=== PATIENT | female | born 1950 | race American Indian/Alaskan Native ===

== ENCOUNTER 2018-05-13 10:40 | Outpatient (CLI) | payer MEDICARE ==
--- NOTE | 2018-05-14 08:22 | Mammography Report ---
Bilateral mammogram: No previous studies available. CAD study utilized. Findings: Predominance adipose tissue bilaterally. Cluster of calcification approximate 3:00 position right breast with an adjacent ill-defined density. Benign appearing calcification upper outer posterior left breast. Biopsy clips at posterior left breast. Normal axilla. Impression: Cluster of calcification in asymmetric density adjacent to the calcification right breast. Comparison with previous studies is recommended. If previous studies are not available spot compression and magnification and sonographic examination advice. BI-RADS CATEGORY: 0 = Needs additional imaging evaluation ACR BI-RADS MAMMOGRAPHIC CODES: 0 = Needs additional imaging evaluation; 1 = Negative; 2 = Benign; 3 = Probably benign; 4 = Suspicious; 5 = Malignant; 6 = Known biopsy-proven malignancy COMMENT: 1. Dense breast tissue, i.e., adenosis, fibrocystic changes, etc., may obscure an underlying neoplasm. 2. Approximately 10% of cancers are not detected with mammography. 3. A negative mammography report should not delay biopsy if a clinically suspicious mass is present. COMMENT: Patient follow-up letters are generated in [employer].
== END 2018-05-13 10:41 | disposition home or self-care (01) ==
LOC: MAMMO 10:40
PROVIDERS: ATTEND Internal Medicine
DX: Z12.31 Encounter for screening mammogram for malignant neoplasm of breast (principal); I11.0 Hypertensive heart disease with heart failure; I50.9 Heart failure, unspecified; I48.91 Unspecified atrial fibrillation; Z87.891 Personal history of nicotine dependence
CPT/HCPCS: 77067

== ENCOUNTER 2018-06-14 09:26 | Outpatient (CLI) | payer MEDICARE ==
--- NOTE | 2018-06-14 10:43 | Ultrasound Report ---
RIGHT DIGITAL DIAGNOSTIC MAMMOGRAM and RIGHT BREAST ULTRASOUND: 06/14/18 09:26:00 CLINICAL: Recalled to evaluate a spiculated right breast mass with calcifications. She has a history of left breast cancer status post left partial mastectomy. COMPARISON:05/13/18 screening FINDINGS: ML, CC and spot magnification LM and CC views were performed and demonstrate a spiculated mass at 1 o'clock measuring approximately 3.5 x 2.3 x 1.7 cm. Pleomorphic highly suspicious calcifications extend anteriorly from the center of the mass. No other mass or suspicious calcifications. Ultrasound of the right breast (including all four quadrants and the retroareolar area) was performed and demonstrated a solid irregular hypoechoic mass at 1 o'clock 10 cm from the nipple. It correlates with the mammographic mass and measures approximately 2.6 x 2.2 x 1.9 cm. No other mass. Ultrasound of the right axilla demonstrated a single lymph node with a fatty hilum. It measures 1.7 x 0.8 x 0.7 cm. Focal cortical thickening of the lymph node measures 4 mm. IMPRESSION: A highly suspicious 3.5 cm right breast mass at 1 o'clock 10 cm from the nipple and a suspicious right axillary lymph node. BI-RADS CATEGORY: 5 - - Highly Suggestive of Malignancy RECOMMENDATION: Ultrasound guided needle core biopsy of the right breast mass and ultrasound guided biopsy of the right axillary lymph node. I discussed the findings and the recommendation for needle core biopsy with the patient at the time of the examination. ACR BI-RADS MAMMOGRAPHIC CODES: 0 = Needs additional imaging evaluation; 1 = Negative; 2 = Benign; 3 = Probably benign; 4 = Suspicious; 5 = Malignant; 6 = Known biopsy-proven malignancy COMMENT: 1. Dense breast tissue, i.e., adenosis, fibrocystic changes, etc., may obscure an underlying neoplasm. 2. Approximately 10% of cancers are not detected with mammography. 3. A negative mammography report should not delay biopsy if a clinically suspicious mass is present. COMMENT: Patient follow-up letters are generated via our [facility] application.
== END 2018-06-14 09:27 | disposition home or self-care (01) ==
LOC: MAMMO 09:26
PROVIDERS: ATTEND Internal Medicine Hematology & Oncology
DX: C50.912 Malignant neoplasm of unspecified site of left female breast (principal); I48.91 Unspecified atrial fibrillation; I11.0 Hypertensive heart disease with heart failure; I50.9 Heart failure, unspecified; Z87.891 Personal history of nicotine dependence

== ENCOUNTER 2018-06-23 12:51 | Outpatient (CLI) | payer MEDICARE ==
--- NOTE | 2018-06-23 14:50 | Mammography Report ---
RIGHT DIGITAL DIAGNOSTIC MAMMOGRAM: 06/23/18 12:51:00 CLINICAL: For clip placement immediately status post ultrasound biopsy. COMPARISON:06/14/18 FINDINGS: A biopsy clip is now identified within the previously described spiculated upper inner mass. IMPRESSION: Concordant clip placement status post ultrasound biopsy. BI-RADS CATEGORY: 5 - - Highly Suggestive of Malignancy Pathology pending.
--- NOTE | 2018-06-23 15:22 | Ultrasound Report ---
ULTRASOUND GUIDED NEEDLE CORE BIOPSY WITH CLIP PLACEMENT RIGHT BREAST AND ULTRASOUND GUIDED NEEDLE CORE BIOPSY OF A RIGHT AXILLARY LYMPH NODE : 06/23/18 13:00:00 CLINICAL: Highly suspicious right breast mass and a suspicious right axillary lymph node. COMPARISON :04/14/18 FINDINGS: The procedure was explained to the patient and informed consent was obtained. Ultrasound demonstrated the previously described mass at 1 o'clock 10 cm from the nipple and the suspicious lymph node in the axilla. The skin was prepped with Betadine and anesthetized with 1% lidocaine. Ultrasound needle core biopsy was performed through a small dermatotomy using ultrasound guidance, 2% lidocaine with epinephrine for deep anesthesia and a 14-gauge Achieve biopsy device. 3 cores were obtained and placed in formalin. A hydro-drew clip was deployed within the mass. The skin in the axilla was prepped with Betadine and anesthetized with 1% lidocaine. Ultrasound guided needle core biopsy of the lymph node was performed through a small dermatotomy using 2% lidocaine with epinephrine for deep anesthesia and a 18-gauge Achieve biopsy device. 2 samples were obtained and placed in formalin. A clip was deployed within the lymph node. Hemostasis was obtained at both sites with minimal pressure and sterile dressings were applied. The patient tolerated the procedure well and there were no apparent complications. She was discharged in good condition and was given instructions for wound care and followup. IMPRESSION: Uncomplicated ultrasound-guided needle core biopsy of a right breast mass and uncomplicated needle core biopsy of a suspicious right axillary lymph node.
== END 2018-06-23 12:52 | disposition home or self-care (01) ==
LOC: SPVWC 12:51
PROVIDERS: ATTEND Internal Medicine Hematology & Oncology
DX: C50.211 Malignant neoplasm of upper-inner quadrant of right female breast (principal); N63.12 Unspecified lump in the right breast, upper inner quadrant; I48.91 Unspecified atrial fibrillation; I11.0 Hypertensive heart disease with heart failure; I50.9 Heart failure, unspecified; Z88.0 Allergy status to penicillin; Z88.8 Allergy status to other drugs, medicaments and biological substances; Z79.899 Other long term (current) drug therapy; Z98.890 Other specified postprocedural states; Z87.891 Personal history of nicotine dependence; Z96.653 Presence of artificial knee joint, bilateral
CPT/HCPCS: 38505; 76942; 88305; 88342

== ENCOUNTER 2018-09-29 05:39 | Day surgery (SDC) | payer MEDICARE ==
[~2018-09-29 05:39] MED LIST: LACTATED RINGERS 1,000 ML IV SCH; NACL 0.9% 1000 ML 1,000 ML IV SCH; VANCOMYCIN/NS 1 GM/250 ML 1 GM/250 ML BAG IV NR
[2018-09-29] MEDS ORDERED: GELFOAM TP ONE (06:17)
[2018-09-29] MEDS ORDERED: XYLOCAINE 1% 20 mL ONE (06:17)
[2018-09-29] MEDS ORDERED: NACL 0.9% 250ML 250 ML ONE (06:17)
[2018-09-29] MEDS ORDERED: HEPARIN 10,000 UNITS/10 ML ONE (06:17)
[2018-09-29] MEDS ORDERED: MARCAINE 0.5% INFILTRATI ONE ×2 (06:17→08:00)
--- NOTE | 2018-09-29 06:55 | XRay Report ---
FINAL REPORT EXAM: XR CHEST 1V AP HISTORY: PREOP SURGERY ; HX SHORTNESS OF BREATH TECHNIQUE: A portable upright view the chest was submitted. FINDINGS: The heart is [id number] enlarged. The lungs are not congested. There are no infiltrates or ef fusions. The skeletal structures reveal surgical clips in the right axilla. IMPRESSION: Cardiomegaly. No acute process in the chest
[2018-09-29] MEDS ORDERED: VANCOMYCIN 1,750 MG in NACL 0.9% 500 ML 500 ML IV ONE (07:00)
[2018-09-29] MEDS ORDERED: SUBLIMAZE ONE (07:14)
[2018-09-29] MEDS ORDERED: XYLOCAINE MPF 2% ONE (07:14)
[2018-09-29] MEDS ORDERED: DIPRIVAN 10 MG/ML IV ONE (07:14)
[2018-09-29 07:21] LABS: INR 1.04 (0.87-1.13)
[2018-09-29 07:22] LABS: Partial Thromboplastin Time 29.5 Sec. (24.2-36.6)
--- NOTE | 2018-09-29 07:28 | Short Stay Summary ---
Short Stay Documentation Date of service: 09/29/18 - History H&P: obtained from office - Allergies and Medications Current Medications: Allergies adhesive tape Allergy (Verified 08/12/18 16:38) Hives ONLY PAPER TAPE ciprofloxacin [From Cipro] Allergy (Verified 08/12/18 16:38) Swelling latex Allergy (Verified 08/12/18 16:38) Hives Penicillins Allergy (Verified 08/12/18 16:38) Swelling Home Medications Medication Instructions Recorded Confirmed Last Taken Type cloNIDine [Catapres] 0.2 mg PO BID 04/19/18 09/23/18 08/18/18 08:00 History traMADol [Ultram 50 MG tab] 50 mg PO BID PRN 04/19/18 09/23/18 08/18/18 08:00 History Apixaban [Eliquis] 5 mg PO BID #60 tablet 04/23/18 09/23/18 08/14/18 Rx Furosemide [Lasix TAB] 40 mg PO QDAY #30 tablet 04/23/18 09/23/18 08/17/18 Rx Losartan [Cozaar] 50 mg PO QDAY #30 tablet 04/23/18 09/23/18 08/17/18 Rx Magnesium Oxide [Mag-Ox] 400 mg PO QDAY #30 tablet 04/23/18 09/23/18 08/17/18 Rx ALBUTEROL Inhaler (OR & NICU) 2 puff IH QID PRN #1 inhalation 06/28/18 09/23/18 08/18/18 08:00 Rx [ProAir HFA Inhaler] Ipratropium [place] [Atrovent Hfa] 1 puff IH Q4H PRN 06/28/18 09/23/18 08/17/18 History Acetaminophen [Tylenol Extra 1,000 mg PO Q4H PRN 08/12/18 09/23/18 08/17/18 History Strength] LORazepam [Ativan] 0.5 mg PO Q6H PRN 08/12/18 09/23/18 08/17/18 History Metoprolol Succinate 50 mg PO DAILY 08/12/18 09/23/18 08/18/18 08:00 History Multivit-Minerals/Folic Acid [One 1 tab PO DAILY 08/12/18 09/23/18 08/17/18 History Daily Womens 50 Plus Tab] amLODIPine [Norvasc] 10 mg PO DAILY 08/12/18 09/23/18 08/17/18 History HYDROcodone/APAP 5-325 [Bath 1 each PO Q4HR PRN #30 tablet 08/19/18 09/23/18 Unknown Rx 5/325] Cyclobenzaprine HCl [Flexeril 5 MG 5 mg PO PRN PRN 09/23/18 09/23/18 Unknown History TAB] Active Medications Sodium Chloride (Nacl 0.9% 1000 Ml) 1,000 mls @ 75 mls/hr IV DIRECT NIK Vancomycin HCl 1,750 mg/ (Sodium Chloride) 535 mls @ 267.5 mls/hr IV ONCE ONE Stop: 09/29/18 08:59 Lactated Ringer's (Lactated Ringers) 1,000 mls @ 100 mls/hr IV DIRECT NIK - Physical exam General appearance: no acute distress Lungs: Normal air movement Neurological: Normal speech - Brief post op/procedure progress note Date of procedure: 09/29/18 (dictation:[id number]) Pre-op diagnosis: right breast cancer Post-op diagnosis: same Procedure: US guided port placement Anesthesia: GETA Findings: normal vascular anatomy. CXR does not show any obvious complication. Surgeon: LESLY BROWN Estimated blood loss: minimal Pathology: none Condition: stable - Hospital course Hospital course: uneventful - Disposition Condition at discharge: Stable Disposition: [id number] TO HOME OR SELFCARE Short Stay Discharge Plan Diet: regular Wound: open to air, keep clean and dry, per your surgeon's advice, other (apply ice to upper chest and neck for 10-15min/4-5 times a day. May shower tomorrow. Pat dry wounds. ) Special Instructions: no heavy lifting (for 1 week. No strenuous activity with left arm. ) Additional Instructions: May resume eliquis tomorrow. Follow up with: SAJI GUZMAN MD [Primary Care Provider] - 7 Days Prescriptions: HYDROcodone/APAP 5-325 [Bath 5-325 mg TAB] 1 each PO Q6H PRN #30 tablet PRN Reason: Pain
[2018-09-29] MEDS ORDERED: HEPARIN 10,000 UNITS/10 ML IV ONE (08:00)
[2018-09-29] MEDS ORDERED: XYLOCAINE 1% 20 mL INFILTRATI ONE (08:00)
[2018-09-29] MEDS ORDERED: NACL 0.9% IR ONE (08:00)
[2018-09-29] MEDS ORDERED: DECADRON ONE (08:05)
[2018-09-29] MEDS ORDERED: ZOFRAN ONE (08:05)
[2018-09-29] MEDS ORDERED: SUBLIMAZE IV PRN (09:13)
--- NOTE | 2018-09-29 09:16 | Anesthesia Consultation ---
Anesthesia Consult and Med Hx Date of service: 09/29/18 - Airway Anesthetic Teeth Evaluation: Edentulous ROM Head & Neck: Adequate Mental/Hyoid Distance: Adequate Mallampati Class: Class II Intubation Access Assessment: Probably Good - Pulmonary Exam CTA: Yes - Cardiac Exam Cardiac Exam: RRR - Pre-Operative Health Status ASA Pre-Surgery Classification: ASA3 Proposed Anesthetic Plan: General - Pulmonary Hx Smoking: Yes (FORMER , 22 YEARS; QUIT 1999) Hx Asthma: Yes (INHALERS PRN; none used in several weeks) Hx Respiratory Symptoms: No (no recent cough or flu-like symptoms) SOB: Yes (SOB WITH ACTIVITY; at baseline today) COPD: Yes Home Oxygen Therapy: No Hx Sleep Apnea: Yes (DX SLEEP APNEA , noncompliant with CPAP) - Cardiovascular System Hx Hypertension: Yes Hx Heart Attack/AMI: No (Hx cardiomyopathy with EF 40-45%; no acute HF symptoms) Hx Percutaneous Transluminal Coronary Angioplasty (PTCA): No Hx Cardia Arrhythmia: Yes (Afib on eliquis (held 5 days); EKG today NSR. ) Hx Pacemaker: No Hx Internal Defibrillator: No - Central Nervous System Hx Seizures: No CVA: No Hx Back Pain: Yes (LOWER) - Gastrointestinal Hx Gastroesophageal Reflux Disease: No - Endocrine Hx Renal Disease: No (hx hypokalemia on potassium replacement. ) Hx Liver Disease: No Hx Insulin Dependent Diabetes: No Hx Non-Insulin Dependent Diabetes: No Hx Thyroid Disease: No - Other Systems Hx Alcohol Use: (OCCA) Hx Substance Use: No Hx Cancer: Yes (breast) Hx Obesity: Yes - Additional Comments Anesthesia Medical History Comments: No hx anesthetic complications.
--- NOTE | 2018-09-29 09:16 | Anesthesia Day of Surgery ---
Anesthesia Day of Surgery - Day of Surgery Patient Examined: Yes Patient H&P Reviewed: Yes Patient is NPO: Yes
--- NOTE | 2018-09-29 09:25 | Post Anesthesia Evaluation ---
- Post Anesthesia Evaluation Patient Participated: Yes Airway Patent: Yes Stable Respiratory Function: Yes Nausea/Vomiting: No Temp > 96.8F: Yes Pain Manageable: Yes Adequeate Hydration: Yes Anesthesia Complications: No
--- NOTE | 2018-09-29 09:25 | Fluoroscopy Report ---
PORTABLE CHEST INDICATION: Right breast cancer. COMPARISON: 6:42 AM earlier today. FINDINGS: Portable, frontal chest radiograph, 8:39 AM, 09/29/2018 demonstrates a new left sided chest port with its tip in the right atrium, approximately 5 cm below the cavoatrial junction. Poor inspiration with mild exaggerated cardiomediastinal silhouette and somewhat prominent lorenza/perihilar markings. No pleural effusions or CHF. Slight left mid lung horizontal scarring or atelectasis peripherally. Right axillary and left upper quadrant surgical clips. Multilevel thoracic spondylosis. EKG leads. CONCLUSION: No acute significant chest process with various other findings, including interval left-sided chest port placement, as described. Please correlate. Thank you for the opportunity to participate in this patient's care.
--- NOTE | 2018-09-29 09:36 | Operative Report ---
PREOPERATIVE DIAGNOSIS: Right breast cancer. POSTOPERATIVE DIAGNOSIS: Right breast cancer. PROCEDURE: 1. Tunneled intravascular catheter placement with port. 2. Ultrasound guidance for vascular access. ATTENDING PHYSICIAN: Beatriz Braxton MD ANESTHESIA: General. ESTIMATED BLOOD LOSS: Minimal. FLUIDS: 150 mL. FINDINGS: Normal vascular anatomy. Postoperative chest x-ray showed no obvious complication. Catheter appeared to be in good position without any kinking. Official read is pending. IMPLANT: Infusaport. DRAINS: None. COMPLICATIONS: Stable, transferred to recovery room. INDICATIONS: This is a 68-year-old female with a history of left-sided breast cancer, who had a new diagnosis of right-sided breast cancer and was assessed to be in need for neoadjuvant chemotherapy. The patient sent to general surgery for port placement. Procedure, risks, benefits were explained to the patient. Risks included but were not limited to infection, bleeding, pain, injury to surrounding structures, possible hemopneumothorax, possible port malfunction and need for replacement. The patient understood and consented. OPERATIVE NOTE: The patient was brought to the operating room and placed in supine position. After adequate general anesthesia was established, I examined the vascular anatomy with ultrasound. We appeared to have a very good target in the left internal jugular vein, the subclavian vein was difficult to identify. There was no evidence of any clot within the internal jugular vein throughout its length to the clavicle. It was easily compressible, and it was well hydrated. Sterile prep and drape was performed. Towel roll was placed behind the shoulders. A time-out was called. I injected the planned incision site with 1% lidocaine and 0.5% Marcaine plain anesthetic and then under ultrasound guidance, I advanced an echogenic needle into the internal jugular vein. I was able to access it on the first attempt, the tip of the needle was in the center of the vein. The guidewire passed easily. We could follow it down the length of the internal jugular vein. Under fluoroscopic evaluation, the guidewire was in the right side of the heart. We also had ectopy. We pulled the wire back to resolve that. I then injected the planned port site. An oblique incision was made in line with the skin lines. A pocket was created. With a combination of blunt dissection and electrocautery, I then injected the planned catheter tract and then using the tunneler, we passed the catheter up towards the neck. This was done fairly easily. I then proceeded to place the dilator and sheath over the guidewire. We checked the position of the sheath under fluoroscopy and then removed the guidewire and the dilator. I inserted the catheter, we adjusted its length based on fluoroscopy to be about 2 vertebral bodies below the dolores and then we planned where the catheter should be cut, so that the port could be attached. We had easy aspiration and flush. I did use the locking collar to secure the port. We then placed the port in the pocket and I locked the solution. We removed the sheath and put the catheter all the way in. It appeared as though we had very good path of the catheter. There was no kinking. We had easy aspiration and flushing and the tip was near the point of 2 vertebral bodies below the dolores. Everything looked to be very good. I injected additional local into the area and then closed the port incision with interrupted 3-0 Vicryl sutures in the deep layer and then a running 4-0 Monocryl subcuticular stitch. The entry site at the internal jugular vein was closed with a single 4-0 Monocryl subcuticular stitch. Skin was cleaned and dried. Dermabond was placed. The patient tolerated procedure well. There were no complications. All counts were correct at the end of the case. We then set the patient up. Chest x-ray showed no obvious complications. Catheter path appeared to be very good. I will follow up on the official read. JOB# [id number] INES/MICAH
[2018-09-29 11:12] VITALS: BP 130/75
== END 2018-09-29 11:05 | disposition home or self-care (01) ==
LOC: OR 05:39
PROVIDERS: ATTEND Surgery
DX: C50.211 Malignant neoplasm of upper-inner quadrant of right female breast (principal); I11.0 Hypertensive heart disease with heart failure; I50.9 Heart failure, unspecified; I48.91 Unspecified atrial fibrillation; E78.00 Pure hypercholesterolemia, unspecified; J44.9 Chronic obstructive pulmonary disease, unspecified; G47.30 Sleep apnea, unspecified; M19.90 Unspecified osteoarthritis, unspecified site; E66.9 Obesity, unspecified; Z68.41 Body mass index [BMI] 40.0-44.9, adult; Z79.01 Long term (current) use of anticoagulants; Z79.899 Other long term (current) drug therapy; Z91.040 Latex allergy status; Z88.0 Allergy status to penicillin; Z88.1 Allergy status to other antibiotic agents; Z91.09 Other allergy status, other than to drugs and biological substances; Z96.653 Presence of artificial knee joint, bilateral; Z90.710 Acquired absence of both cervix and uterus; Z90.49 Acquired absence of other specified parts of digestive tract; Z90.11 Acquired absence of right breast and nipple; Z87.891 Personal history of nicotine dependence; Z98.890 Other specified postprocedural states; Z80.8 Family history of malignant neoplasm of other organs or systems
CPT/HCPCS: 36415; 36561; 71045; 76937; 77001; 84132; 85610; 85730; 93005; 93010; A4649; C1788; J1100; J1644; J2405; J2704; J3010; J3370; J7030; J7040; J7050; J7120

== ENCOUNTER 2018-10-02 07:17 | Emergency (ER) | payer MEDICARE ==
--- NOTE | 2018-10-02 09:03 | Emergency Department Report ---
ED General Adult HPI - General Chief complaint: Laceration/Recheck/Suture Stated complaint: PUSS DRAINING FROM BREAST Time Seen by Provider: 10/02/18 09:00 Source: patient Mode of arrival: Ambulatory Limitations: No Limitations - History of Present Illness Initial comments: 68-year-old female with mastectomy on 09/29/2018. This morning she noted a gush of purulent material from her surgical incision. She denies fever or chills. She does not complain of pain or any systemic symptoms. She states that she is scheduled to begin chemotherapy. He states that she had 3 positive nodes on her recent surgical assessment. The patient is already expressing a desire to go home. She was informed by her oncologist to come to the emergency department for evaluation. As per discharge summary: Indications for operative procedure: This is a 68-year-old lady with newly diagnosed multifocal stage II right breast cancer of the upper inner quadrant, [id number] ER/DC/Her-2 negative. She has a personal history of left breast cancer diagnosed in 2013 and underwent a partial mastectomy with SLNB followed by chemoradiation therapy treated in [place]. She wished to proceed with a right mastectomy and declined plastic surgery. Genetic testing denied by her insurance and patient wished to proceed with surgery and not await appeal. She wished to proceed with the above procedure. -: Sudden Associated Symptoms: denies other symptoms - Related Data Home Medications Medication Instructions Recorded Confirmed Last Taken cloNIDine [Catapres] 0.2 mg PO BID 04/19/18 09/29/18 09/29/18 04:00 traMADol [Ultram 50 MG tab] 50 mg PO BID PRN 04/19/18 09/23/18 08/18/18 08:00 Ipratropium [place] [Atrovent Hfa] 1 puff IH Q4H PRN 06/28/18 09/23/18 08/17/18 Acetaminophen [Tylenol Extra 1,000 mg PO Q4H PRN 08/12/18 09/29/18 09/29/18 04:00 Strength] LORazepam [Ativan] 0.5 mg PO Q6H PRN 08/12/18 09/23/18 08/17/18 Metoprolol Succinate 50 mg PO DAILY 08/12/18 09/29/18 09/29/18 04:00 Multivit-Minerals/Folic Acid [One 1 tab PO DAILY 08/12/18 09/29/18 09/28/18 09:00 Daily Womens 50 Plus Tab] amLODIPine [Norvasc] 10 mg PO DAILY 08/12/18 09/29/18 09/29/18 04:00 Cyclobenzaprine HCl [Flexeril 5 MG 5 mg PO PRN PRN 09/23/18 09/29/18 09/29/18 04:00 TAB] Previous Rx's Medication Instructions Recorded Last Taken Type Apixaban [Eliquis] 5 mg PO BID #60 tablet 04/23/18 09/24/18 09:00 Rx Furosemide [Lasix TAB] 40 mg PO QDAY #30 tablet 04/23/18 09/28/18 09:00 Rx Losartan [Cozaar] 50 mg PO QDAY #30 tablet 04/23/18 09/29/18 04:00 Rx Magnesium Oxide [Mag-Ox] 400 mg PO QDAY #30 tablet 04/23/18 09/29/18 04:00 Rx ALBUTEROL Inhaler (OR & NICU) 2 puff IH QID PRN #1 inhalation 06/28/18 08/18/18 08:00 Rx [ProAir HFA Inhaler] HYDROcodone/APAP 5-325 [[place] 1 each PO Q6H PRN #30 tablet 09/29/18 Unknown Rx 5-325 mg TAB] Sulfamethoxazole/Trimethoprim 1 each PO BID #20 tablet 10/02/18 Unknown Rx [Bactrim DS TAB] Allergies Allergy/AdvReac Type Severity Reaction Status Date / Time adhesive tape Allergy Hives Verified 10/02/18 07:20 ciprofloxacin [From Cipro] Allergy Swelling Verified 10/02/18 07:20 latex Allergy Hives Verified 10/02/18 07:20 Penicillins Allergy Swelling Verified 10/02/18 07:20 ED Review of Systems ROS: Stated complaint: PUSS DRAINING FROM BREAST Other details as noted in HPI Constitutional: denies: chills, fever Eyes: denies: eye pain, eye discharge, vision change ENT: denies: ear pain, throat pain Respiratory: denies: cough, shortness of breath, wheezing Cardiovascular: denies: chest pain, palpitations Endocrine: no symptoms reported Gastrointestinal: denies: abdominal pain, nausea, diarrhea Genitourinary: denies: urgency, dysuria, discharge Musculoskeletal: denies: back pain, joint swelling, arthralgia Skin: as per HPI. denies: rash, lesions Neurological: denies: headache, weakness, paresthesias Psychiatric: denies: anxiety, depression Hematological/Lymphatic: denies: easy bleeding, easy bruising ED Past Medical Hx - Past Medical History Hx Hypertension: Yes Hx Heart Attack/AMI: (Hx cardiomyopathy with EF 40-45%; no acute HF symptoms) Hx Congestive Heart Failure: Yes Hx Diabetes: No Hx Liver Disease: No Hx Renal Disease: No (hx hypokalemia on potassium replacement. ) Hx of Cancer: Yes (breast) Hx Arthritis: Yes (LOWER BACK) Hx Seizures: No Hx Asthma: Yes (INHALERS PRN; none used in several weeks) Hx COPD: Yes Hx HIV: No Additional medical history: a-fib. Metastatic breast carcinoma bilateral mastectomy - Surgical History Hx Pacemaker: No Hx Internal Defibrillator: No Hx Cholecystectomy: Yes Hx Breast Surgery: Yes (R BX X2, L BX X1) Additional Surgical History: bilateral knee replacements, hysterectomy - Social History Smoking Status: Never Smoker Substance Use Type: None - Medications Home Medications: Home Medications Medication Instructions Recorded Confirmed Last Taken Type cloNIDine [Catapres] 0.2 mg PO BID 04/19/18 09/29/18 09/29/18 04:00 History traMADol [Ultram 50 MG tab] 50 mg PO BID PRN 04/19/18 09/23/18 08/18/18 08:00 History Apixaban [Eliquis] 5 mg PO BID #60 tablet 04/23/18 09/29/18 09/24/18 09:00 Rx Furosemide [Lasix TAB] 40 mg PO QDAY #30 tablet 04/23/18 09/29/18 09/28/18 09:00 Rx Losartan [Cozaar] 50 mg PO QDAY #30 tablet 04/23/18 09/29/18 09/29/18 04:00 Rx Magnesium Oxide [Mag-Ox] 400 mg PO QDAY #30 tablet 04/23/18 09/29/18 09/29/18 04:00 Rx ALBUTEROL Inhaler (OR & NICU) 2 puff IH QID PRN #1 inhalation 06/28/18 09/23/18 08/18/18 08:00 Rx [ProAir HFA Inhaler] Ipratropium [place] [Atrovent Hfa] 1 puff IH Q4H PRN 06/28/18 09/23/18 08/17/18 History Acetaminophen [Tylenol Extra 1,000 mg PO Q4H PRN 08/12/18 09/29/18 09/29/18 04:00 History Strength] LORazepam [Ativan] 0.5 mg PO Q6H PRN 08/12/18 09/23/18 08/17/18 History Metoprolol Succinate 50 mg PO DAILY 08/12/18 09/29/18 09/29/18 04:00 History Multivit-Minerals/Folic Acid [One 1 tab PO DAILY 08/12/18 09/29/18 09/28/18 09:00 History Daily Womens 50 Plus Tab] amLODIPine [Norvasc] 10 mg PO DAILY 08/12/18 09/29/18 09/29/18 04:00 History Cyclobenzaprine HCl [Flexeril 5 MG 5 mg PO PRN PRN 09/23/18 09/29/18 09/29/18 04:00 History TAB] HYDROcodone/APAP 5-325 [[place] 1 each PO Q6H PRN #30 tablet 09/29/18 Unknown Rx 5-325 mg TAB] Sulfamethoxazole/Trimethoprim 1 each PO BID #20 tablet 10/02/18 Unknown Rx [Bactrim DS TAB] ED Physical Exam - General Limitations: No Limitations General appearance: alert, in no apparent distress - Head Head exam: Present: atraumatic, normocephalic - Eye Eye exam: Present: normal appearance. Absent: scleral icterus - ENT ENT exam: Present: mucous membranes moist - Neck Neck exam: Present: normal inspection - Respiratory Respiratory exam: Present: normal lung sounds bilaterally. Absent: respiratory distress - Cardiovascular Cardiovascular Exam: Present: regular rate, normal rhythm. Absent: systolic murmur, diastolic murmur, rubs, gallop - GI/Abdominal GI/Abdominal exam: Present: soft, normal bowel sounds. Absent: distended, tenderness, guarding, rebound, rigid - Extremities Exam Extremities exam: Present: normal inspection - Back Exam Back exam: Present: normal inspection - Neurological Exam Neurological exam: Present: alert, oriented X3, CN II-XII intact. Absent: motor sensory deficit - Psychiatric Psychiatric exam: Present: normal affect, normal mood - Skin Skin exam: Present: warm, dry, other. Absent: normal color (the surgical incision is intact except for a tract in the middle third, there is purulent drainage but no fluctuance. There is minimal erythema. Largely there is no dehiscence except for the tract.), rash ED Course Vital Signs 10/02/18 07:20 Temperature 97.9 F Pulse Rate 92 H Respiratory 20 Rate Blood Pressure 142/83 O2 Sat by Pulse 97 Oximetry - Reevaluation(s) Reevaluation #1: I would've given the patient an initial dose of vancomycin. However, she declines the use of her port because "insurance won't pay for it except for chemotherapy". I think the patient can be just started on oral Bactrim. Discussed with Dr. Blake. She states the office will call patient on Thursday. Patient is given return criteria. 10/02/18 09:34 ED Medical Decision Making - Lab Data Result diagrams: 10/02/18 08:43 10/02/18 08:43 Laboratory Results - last 24 hr 10/02/18 08:43 WBC 10.0 RBC 5.01 Hgb 14.4 H Hct 43.8 H MCV 87 MCH 29 MCHC 33 RDW 15.8 H Plt Count 250 Lymph % (Auto) 6.9 L [place] % (Auto) 3.1 Eos % (Auto) 0.0 Baso % (Auto) 0.7 Lymph # 0.7 L [place] # 0.3 Eos # 0.0 Baso # 0.1 Seg Neutrophils % 89.3 H Seg Neutrophils # 9.0 H Critical care attestation.: If time is entered above; I have spent that time in minutes in the direct care of this critically ill patient, excluding procedure time. ED Disposition Clinical Impression: Abscess of right breast, Hyperglycemia Disposition: DC-01 TO HOME OR SELFCARE Is pt being admited?: No Does the pt Need Aspirin: No Condition: Stable Instructions: Hyperglycemia, Non-Diabetic (ED), Abscess (ED) Additional Instructions: Continue dressing and gently try to express material out of the abscess if there is any remaining. Your blood sugar was slightly elevated. This can happen with infection and should be rechecked by Thursday. You can also purchase a machine to check your sugar over the weekend. If it is more elevated than returned. The number was 170 today. Also return if you have a fever chills increasing redness or you feel sick. Otherwise Dr. Blake's office will be calling you on Thursday for further instructions. Return if any acute change or problem. A culture test is pending which takes 2-3 days. Prescriptions: Sulfamethoxazole/Trimethoprim [Bactrim DS TAB] 1 each PO BID #20 tablet Referrals: SAJI GUZMAN MD [Primary Care Provider] - 3-[address] Blake, surgeon [Other] - 2-3 Days Time of Disposition: 09:36
[2018-10-02 09:10] LABS: Basophils # (Auto) 0.1 K/mm3 (0.0-0.1); Basophils % (Auto) 0.7 % (0.0-1.8); Hematocrit 43.8 % (30.3-42.9); Hemoglobin 14.4 gm/dl (10.1-14.3); Lymphocytes # (Auto) 0.7 K/mm3 (1.2-5.4); Lymphocytes % (Auto) 6.9 % (13.4-35.0); Mean Corpuscular HGB Conc 33 % (30-34); Mean Corpuscular Volume 87 fl (79-97); Monocytes # (Auto) 0.3 K/mm3 (0.0-0.8); Monocytes % (Auto) 3.1 % (0.0-7.3); Platelet Count 250 K/mm3 (140-440); Red Blood Count 5.01 M/mm3 (3.65-5.03); Red Cell Distribution Width 15.8 % (13.2-15.2)
[2018-10-02 09:21] LABS: BUN/Creatinine Ratio 21; Blood Urea Nitrogen 19 mg/dL (7-17); Calcium 10.1 mg/dL (8.4-10.2); Hemolysis Index 8
[2018-10-02] MEDS ORDERED: BACTRIM DS PO ONE (09:33)
[2018-10-02 10:09] VITALS: BP 137/87
== END 2018-10-02 10:09 | disposition home or self-care (01) ==
LOC: ED 07:17
DX: N61.1 Abscess of the breast and nipple (principal); C50.911 Malignant neoplasm of unspecified site of right female breast; R73.9 Hyperglycemia, unspecified; I11.0 Hypertensive heart disease with heart failure; I50.9 Heart failure, unspecified; M19.90 Unspecified osteoarthritis, unspecified site; J44.9 Chronic obstructive pulmonary disease, unspecified; Z90.49 Acquired absence of other specified parts of digestive tract; Z88.1 Allergy status to other antibiotic agents; Z88.0 Allergy status to penicillin; Z91.040 Latex allergy status
CPT/HCPCS: 36415; 80048; 85025; 87076; 87116; 87186

== ENCOUNTER 2018-12-23 13:43 | Outpatient (CLI) | payer MEDICARE ==
--- NOTE | 2018-12-24 16:22 | PET Report ---
PET/CT:12/23/18 13:43:00 CLINICAL: Breast cancer restaging. History of bilateral breast cancer and status post right mastectomy 08/18/18.. RADIOPHARMACEUTICAL: 12.07mCi F18-FDG. COMPARISON: None. TECHNIQUE- Following intravenous injection of F-18 FDG and an approximately 60 minute uptake period, CT and PET images from the mid skull to the upper thighs were acquired with the patient in the fasted state. No contrast was administered. The CT protocol used for this PET CT study is designed for attenuation correction and anatomic localization of PET abnormalities. This pan devulcanizer CT is not desired to produce and cannot replace, [id number] diagnostic CT scans with specific imaging protocols for different body parts and indications. Plasma glucose at the time of this test: 90g/dl. The standardized uptake values (SUV) are normalized to patient body weight and indicate the highest activity concentration (SUV max) in a given disease site. FINDINGS: Brain--Physiologic FDG uptake in the visualized regions of the brain. Neck--Physiologic FDG uptake in mucosal structures. No mass or lymphadenopathy. Focal FDG uptake in the left thyroid with SUV 11.8. The thyroid appears to be multinodular with a dominant hypodense nodule in the left lobe. Chest--Physiologic FDG uptake in mediastinal blood pool and myocardium. Status post right mastectomy with benign FDG uptake in the right chest wall. Lungs--No abnormal uptake. No pulmonary nodule or mass. Pleura/pericardium--No abnormal uptake. Thoracic nodes--No abnormal uptake. Hepatobiliary--No abnormal uptake. Liver background SUV mean, as a reference for comparing FDG studies, is 4.2 . No liver mass. Spleen--No abnormal uptake. Pancreas--No abnormal uptake. Adrenal Glands--No abnormal uptake. Kidneys/Ureters/Bladder--No abnormal uptake. Abdominopelvic Nodes--No abnormal uptake. Bowel/Peritoneum/Mesentery--No abnormal uptake. Pelvic organs--No abnormal uptake. Bones/Soft Tissues--No abnormal uptake and no suspicious bone lesion. IMPRESSION- 1. No evidence of jose, pulmonary, hepatic or skeletal metastasis. 2. Multinodular thyroid with focal FDG uptake in the left lobe. Recommend further evaluation with thyroid ultrasound.
== END 2018-12-23 13:44 | disposition home or self-care (01) ==
LOC: PET 13:43
PROVIDERS: ATTEND Internal Medicine Hematology & Oncology
DX: C50.912 Malignant neoplasm of unspecified site of left female breast (principal); C50.211 Malignant neoplasm of upper-inner quadrant of right female breast; E04.2 Nontoxic multinodular goiter; I11.0 Hypertensive heart disease with heart failure; I50.9 Heart failure, unspecified; J44.9 Chronic obstructive pulmonary disease, unspecified; E66.9 Obesity, unspecified; Z90.710 Acquired absence of both cervix and uterus; Z90.49 Acquired absence of other specified parts of digestive tract; Z87.891 Personal history of nicotine dependence
CPT/HCPCS: 78815; 82962; A9552